=== PATIENT | male | born 1975 | race Caucasian/White ===

== ENCOUNTER 2021-05-14 16:55 | Emergency (ER) | payer MEDICAID ==
[~2021-05-14] VITALS: Ht 175.3 cm; Wt 77.1 kg
[2021-05-14] MEDS ORDERED: MORPHINE SULFAT30 M2 PO (17:21)
[2021-05-14] MEDS ORDERED: MORPHINE SULFAT15 MG PO ×2 (17:22)
[2021-05-14] MEDS ORDERED: OMEPRAZOLE40 MG PO (17:25)
[2021-05-14] MEDS ORDERED: TRAZODONE HCL50 MG NG (17:26)
[2021-05-14] MEDS ORDERED: ZOFRAN4 MG PO (17:27)
[2021-05-14] MEDS ORDERED: POTASSIUM CHLO20 ME1 PO (20:22)
== END 2021-05-14 20:36 | disposition home or self-care (01) ==
LOC: ED 16:55
DX: R56.9 Unspecified convulsions (principal); E87.6 Hypokalemia; S00.532A Contusion of oral cavity, initial encounter; Q85.00 Neurofibromatosis, unspecified; Z88.5 Allergy status to narcotic agent; Z79.899 Other long term (current) drug therapy; X58.XXXA Exposure to other specified factors, initial encounter
CPT/HCPCS: 70450; 80053; 81001; 85025; 99285-25; G0480